=== PATIENT | female | born 1995 | race African-American/Black ===

== ENCOUNTER 2018-06-28 10:25 | Outpatient (CLI) | payer OTHER | END 2018-06-28 10:26 | disposition home or self-care (01) | LOC: RHC-LAB 10:25 | PROVIDERS: ATTEND Nurse Practitioner Family | DX: N89.8 Other specified noninflammatory disorders of vagina (principal) | CPT/HCPCS: 36415; 80074; 81001; 86592; 86631; 86695; 86696; 87389; 87800 ==